=== PATIENT | female | born 1970 | race Caucasian/White ===

== ENCOUNTER 2024-05-09 10:04 | Emergency (ER) | payer OTHER, SELFPAY ==
[2024-05-09 10:09] VITALS: BP 106/74
[2024-05-09 10:41] LABS: % Basophils 0.3 % (0-2); % Eosinophils 0.3 % (0-6); % Immature Granulocytes 1.5 % (0-0.5); % Lymphocytes 15.4 % (20.5-51.1); % Monocytes 6.5 % (1.7-9.3); Absolute Immature Granulocytes 0.2 10^3/uL (0-0.05); Absolute Lymphocytes 1.5 10^3/uL (1.2-3.4); Absolute Monocytes 0.7 10^3/uL (0.1-0.6); Absolute Neutrophils 7.6 10^3/uL (1.4-6.5); Hematocrit 34.6 % (37.0-47.0); Mean Corp Hgb Conc. 34.7 g/dL (33.0-37.0); Mean Corpuscular Hgb 32.7 pg (27.0-31.0); Mean Corpuscular Volume 94.3 fL (81.0-99.0); Mean Platelet Volume 9.2 fL (7.4-10.4); Nucleated Red Blood Cells % 0 %; Platelet Count 338 10^3/uL (130-400); Red Blood Cell Count 3.67 10^6/uL (4.20-5.40); Red Cell Dist. Width 11.8 % (11.5-14.5)
[2024-05-09 10:59] LABS: COVID-19 Antigen Negative (Negative)
[2024-05-09 11:00] LABS: ALT (SGPT) 17 U/L (0-35); AST (SGOT) 19 U/L (14-36); Albumin 3.8 g/dl (3.5-5.0); Alkaline Phosphatase 80 U/L (38-126); Blood Urea Nitrogen 6 mg/dl (7-17); Calcium 9.3 mg/dl (8.4-10.2); Carbon Dioxide 26 mmol/L (22-30); Chloride 99 mmol/L (98-107); Glucose 112 mg/dl (70-99); Potassium 4.3 mmol/L (3.5-5.1); Sodium 135 mmol/L (135-145); Total Protein 6.5 g/dl (6.3-8.2); eGFR > 60.00
[2024-05-09 11:06] LABS: Troponin I < 0.012 ng/ml
--- NOTE | 2024-05-09 11:20 | ED.GENMED ---
History of Present Illness
General
Chief Complaint: Cough
Source: patient
Exam Limitations: none
Time Seen by Provider: 05/09/24 11:17
History of Present Illness
History of Present Illness:
53yoF with a remote history of breast cancer in 2018 currently in remission on anastrozole and migraines presenting for evaluation of a cough x 2 weeks. Cough is productive of yellow sputum. She has been using OTC medications including Robitussin
and Theraflu without any relief. She is having intermittent fevers with a Tmax of 101.6. Last fever was 2 days ago. She also has been having right sided chest discomfort primarily with coughing. She was coughing in the middle of the night last night
when she felt a sharp pain underneath her right breast. She has been having difficulty taking a deep breath since then. Her family member was sick before her symptoms began but they felt better after a few days. She denies tobacco use.
Phy Exam
General Physical Exam
General Presentation: well appearing and no apparent distress
General age: appears stated age
General Skin: warm and dry
General Habitus: normal
General Mental: alert
ENT Exam
ENT Exam: normocephalic
Cardiovascular Exam
Cardiovascular Exam: regular rate/rhythm, no edema and no murmur
Pulmonary Exam
Pulmonary Exam: no respiratory distress, no rhonchi, no wheezing and other (Frequent dry cough noted. Rales present to R lower lung base. +R sided chest wall tenderness, no crepitus or skin changes.)
Neurological Exam
Neurological Exam: alert
[place] Coma Scale
Eye Opening: Spontaneous
Verbal Response: Oriented
Motor Response: Obeys Commands
GCS Total Score: 15
Skin Exam
Skin Exam: normal color and warm/dry
Psychiatric Exam
Psychiatric Exam: normal mood/affect
Course
Orders/Labs/Results
Orders:
Orders
05/09/24 10:12
Chest [CR Chest - 2 Views ] Urgent
Comment:
Reason For Exam: SOB, felt a 'pop' on right side after coughing
05/09/24 10:25
COVID-19 Antigen Urgent
Source: Nasal Swab
Influenza A+B Rapid Molecular Urgent
NORMA Source: Nasal Swab
Specimen Description:
05/09/24 10:27
EKG [Electrocardiogram (*1)] Urgent
Reason for Study: Chest Pain
EKG- Treatment ONCE
05/09/24 10:29
Complete Blood Count/With Diff Urgent
Comprehensive Metabolic Panel Urgent
Troponin I Urgent
05/09/24 11:41
Ketorolac [Toradol] 15 mg IV NOW STA
05/09/24 11:49
D-Dimer Urgent
05/09/24 12:15
CT Chest PE Study Urgent
Comment:
Reason For Exam: Pleuritic pain, elevated D-dimer
05/09/24 12:47
Ketorolac [Toradol] 15 mg IV NOW STA
Morphine Sulfate 4 mg IV NOW STA
Abnormal Lab Results
05/09/24 05/09/24
10:29 11:49
RBC 3.67 L 10^6/uL
(4.20-5.40)
Hct 34.6 L %
(37.0-47.0)
MCH 32.7 H pg
(27.0-31.0)
Abs Immat Gran (auto) 0.2 H 10^3/uL
(0-0.05)
Absolute Neuts (auto) 7.6 H 10^3/uL
(1.4-6.5)
Absolute Monos (auto) 0.7 H 10^3/uL
(0.1-0.6)
Immature Gran % 1.5 H %
(0-0.5)
Neutrophils % 76.0 H %
(42.2-75.2)
Lymphocytes % 15.4 L %
(20.5-51.1)
D-Dimer 1.10 H ug/mlFEU
(0.00-0.50)
BUN 6 L mg/dl
(7-17)
Glucose 112 H mg/dl
(70-99)
05/09/24 10:29
05/09/24 10:29
Vital Signs
Initial and Last Documented VS:
Initial Vital Signs
Temp Pulse Resp BP Pulse Ox
98.7 F 89 20 106/74 96
05/09/24 10:09 05/09/24 10:09 05/09/24 10:09 05/09/24 10:09 05/09/24 10:09
Last Documented Vital Signs
Temp Pulse Resp BP Pulse Ox
98.7 F 73 16 125/55 97
05/09/24 10:09 05/09/24 14:00 05/09/24 14:00 05/09/24 14:00 05/09/24 14:00
MDM/Problems Addressed
Differential Diagnosis Includes:
53yoF here with productive cough x 2 weeks with intermittent fever. Also having R sided chest pain. [place] a sharp pain last night while coughing and now having trouble taking a deep breath. VSS and oxygen saturation 96% on room air. Bilateral breath
sounds equal. There is reproducible chest wall tenderness without crepitus or skin changes. Differential diagnosis includes but is not limited to: pneumonia, bronchitis, PE, pneumothorax, rib fracture, chest wall strain
Initial ED plan: Labs, EKG, and chest x-ray obtained in triage. White count is normal. EKG shows normal sinus rhythm without ischemic changes and troponin within normal limits. There is evidence of a right sided infiltrate on chest x-ray per my
interpretation, radiology report is pending. COVID/flu swab negative. Will check D-dimer. IV Toradol for pain.
*EKG
Interpreted by ED Provider?: Yes
EKG Intrepretation Date: 05/09/24
Heart Rate: 87
Rate: normal
Rhythm: sinus
[place]: normal axis
Interval: normal interval
QRS Pattern: normal QRS
Ischemia: no ischemia
*Critical Care Note
Total Time (30-74mins, 75-104mins- exclusive of procedures): Not Applicable
Update Note
Update Note:
D-dimer elevated and CTA chest subsequently ordered. CT reveals 'Areas of consolidation in the right lower lobe, lateral inferior right middle lobe and medial segment of the right middle lobe as well as small right hilar and small subcarinal
mediastinal lymph nodes. Few additional smaller nodular opacities bilaterally, as detailed above. Although findings may be inflammatory/infectious, MALIGNANCY IS A DISTINCT POSSIBILITY.' I discussed case with bankruptcy assistant, Dr. Koch, who
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 Pulmonology recommending outpatient f/u in a few weeks to allow this pneumonia to resolve and determine next steps.
Findings discussed with patient. Her PCP and all her medical care is through [facility] so she prefers to f/u with pulmonology in [facility] network. She was provided with a copy of her radiology report as well as a disc with CT images. Patient
oxygenating well on room air. No indication for hospitalization. She was started on a course of Augmentin and azithromycin. Supportive care discussed. Advised close f/u with PCP and ED return precautions discussed. Patient in agreement with plan and
was discharged in stable condition.
ED Attending Note
-
Portions of this chart may have been created with voice recognition software.� Occasional wrong word or��sound alike� substitutions may have occurred due to the inherent limitations of voice recognition software.
Discharge Plan
Departure
Patient Disposition: Home (Routine Discharge)
Date of Disposition: 05/09/24
Time of Disposition: 13:44
Patient with high blood pressure during this ER visit?: No
Discharge Problem:
Pneumonia involving right lung, Hilar lymphadenopathy
Instructions: Pneumonia, Adult (DC)
Prescriptions:
New
amoxicillin-pot clavulanate 875-125 mg tablet
1 tab PO BID Qty: 14 0RF
azithromycin [Zithromax] 250 mg tablet
250 mg PO DAILY Qty: 6 0RF
Rx Instructions:
Take 500mg PO on day 1. Take 250mg the next 4 days.
Referrals:
Yanira Maynard NP [Family Provider] -
Activity Restrictions/Additional Instructions:
Take antibiotics as prescribed. Drink plenty of fluids. Use honey and humidifier for cough.
Please call your family doctor tomorrow for follow-up. You will need to see a bankruptcy assistant for the abnormal findings on your CT scan.
Return to the ER with any new or worsening symptoms.
Your CT scan results:
No evidence of central pulmonary embolism.
Areas of consolidation in the right lower lobe, lateral inferior right middle lobe and medial segment of the right middle lobe as well as small right hilar and small subcarinal mediastinal lymph nodes. Few additional smaller nodular opacities
bilaterally, as detailed above. Although findings may be inflammatory/infectious, MALIGNANCY IS A DISTINCT POSSIBILITY.
Interventions
Interventions:
*Risk Screen - Suicide Last Done: 05/09/24 10:11
*General Assessment Last Done: 05/09/24 10:11
*Neglect/Abuse Screening Last Done: 05/09/24 10:11
*ED COVID-19 Vaccine History Last Done: 05/09/24 10:11
ED- Pulmonary Assessment Last Done: 05/09/24 11:55
Discharge Date and Time
Print Language: CYPRIOT
[2024-05-09] MEDS: TORADOL 15 MG IV (11:49)
[2024-05-09 11:54] VITALS: BP 108/65
[2024-05-09 12:00] VITALS: BP 105/59
[2024-05-09] MEDS: MORPHINE SULFATE 4 MG IV (13:16)
[2024-05-09 13:19] VITALS: BP 114/63
[2024-05-09 14:00] VITALS: BP 125/55
== END 2024-05-09 14:11 | disposition home or self-care (01) ==
LOC: EMR 10:04
PROVIDERS: Emergency Medicine; Physician Assistant; EMERGENCY PHYSICIAN Emergency Medicine; FAMILY PHYSICIAN Nurse Practitioner
DX: J18.9 Pneumonia, unspecified organism (principal); R59.0 Localized enlarged lymph nodes; R79.1 Abnormal coagulation profile; R07.89 Other chest pain; Z85.3 Personal history of malignant neoplasm of breast; Z79.899 Other long term (current) drug therapy; Z11.52 Encounter for screening for COVID-19
CPT/HCPCS: 99285; 96374; 96375; 71046; 71275; 80053; 84484; 85025; 85379; 87502; 87811; 93005; Q9967